=== PATIENT | female | born 1965 | race Caucasian/White ===

== ENCOUNTER 2017-06-11 12:39 | Day surgery (SDC) | payer MEDICAID ==
[~2017-06-11] VITALS: Ht 160 cm; Wt 110.2 kg
[2017-06-11] MEDS ORDERED: ZOLOFT 100MG100 MG PO (13:15)
[2017-06-11] MEDS ORDERED: PRINIVIL5 MG PO (13:15)
[2017-06-11] MEDS ORDERED: PRILOSEC 20MG20 MG PO (13:15)
[2017-06-11] MEDS ORDERED: ATIVAN 1MG T1 MG/TAB PO (13:16)
[2017-06-11 13:30] VITALS: BP 146/107; PULSE 104; TEMP 97.7
[2017-06-11 14:55] VITALS: BP 128/80; PULSE 99; TEMP 98.2
[2017-06-11 15:05] VITALS: BP 117/81; PULSE 93
[2017-06-11 15:18] VITALS: BP 119/86; PULSE 96
[2017-06-11 15:30] VITALS: BP 114/89; PULSE 99
[2017-06-11 15:45] VITALS: BP 116/87; PULSE 98
== END 2017-06-11 16:18 | disposition home or self-care (01) ==
LOC: SDCO 12:39
DX: Z12.11 Encounter for screening for malignant neoplasm of colon (principal); K21.0 Gastro-esophageal reflux disease with esophagitis; K44.9 Diaphragmatic hernia without obstruction or gangrene; R93.2 Abnormal findings on diagnostic imaging of liver and biliary tract; K76.0 Fatty (change of) liver, not elsewhere classified; F17.210 Nicotine dependence, cigarettes, uncomplicated; E66.01 Morbid (severe) obesity due to excess calories; Z68.42 Body mass index [BMI] 45.0-49.9, adult; Z88.0 Allergy status to penicillin
CPT/HCPCS: OP; J2250; J2405; J3010; J7030